=== PATIENT | female | born 1965 | race Caucasian/White ===

== ENCOUNTER 2019-07-02 18:44 | Emergency (ER) | payer BC ==
[2019-07-02] MEDS ORDERED: ACETAMINOPHEN 325 MG TABLET PO ONE (18:59)
--- NOTE | 2019-07-02 19:00 | ER Document Report ---
ED Medical Screen (RME) - General Chief Complaint: High Blood Pressure Stated Complaint: HEADACHE Time Seen by Provider: 07/02/19 18:55 Mode of Arrival: Ambulatory Information source: Patient Notes: 53-year-old female presented to ED for complaint of headache nausea blurry vision. She states that she is never been diagnosed with high blood pressure but her she had a cousin took her blood pressure on Monday and was 168/105. She states she has had other symptoms also she is been through menopause that she has night sweats sometimes she does have high cholesterol but is not been treated for that recently. She states she came became very concerned and she does not have a primary doctor to follow-up with. She is alert oriented respirations regular nonlabored speaking in full sentences and at this time. I have greeted and performed a rapid initial assessment of this patient. A comprehensive ED assessment and evaluation of the patient, analysis of test results and completion of medical decision making process will be conducted by an additional ED providers. TRAVEL OUTSIDE OF THE [place] IN LAST 30 DAYS: No - Related Data Allergies/Adverse Reactions: No Known Allergies Allergy (Verified 07/10/14 07:14) Past Medical History - Past Medical History Cardiac Medical History: Reports: Hx Coronary Artery Disease - High Cholesterol, Hx Hypercholesterolemia Denies: Hx Heart Attack, Hx Hypertension Pulmonary Medical History: Reports: Hx Asthma - Chronic Cough, Hx Bronchitis, Hx Pneumonia Denies: Hx COPD Neurological Medical History: Denies: Hx Cerebrovascular Accident, Hx Seizures Musculoskeltal Medical History: Denies Hx Arthritis - Hands Past Surgical History: Reports: Hx Tubal Ligation. Denies: Hx Hysterectomy - Immunizations Hx Diphtheria, Pertussis, Tetanus Vaccination: Yes Physical Exam - Vital signs Vitals: Temp Pulse Resp BP Pulse Ox 98.2 F 83 14 168/96 H 98 07/02/19 18:51 07/02/19 18:51 07/02/19 18:51 07/02/19 18:51 07/02/19 18:51 Course - Vital Signs Vital signs: Temp Pulse Resp BP Pulse Ox 98.2 F 83 14 168/96 H 98 07/02/19 18:55 07/02/19 18:51 07/02/19 18:51 07/02/19 18:51 07/02/19 18:51
[2019-07-02 19:49] LABS: ABSOLUTE EOSINOPHILS # (AUTO) 0.1 10^3/uL (0.0-0.6); ABSOLUTE LYMPHOCYTES (AUTO) 1.9 10^3/uL (0.5-4.7); ABSOLUTE MONOCYTES (AUTO) 0.4 10^3/uL (0.1-1.4); ABSOLUTE NEUT (AUTO) 3.4 10^3/uL (1.7-8.2); BASOPHILS % (AUTO) 0.8 % (0-2); EOSINOPHILS % (AUTO) 1.8 % (0-6); HEMATOCRIT 36.9 % (36.0-47.0); HEMOGLOBIN 13.4 g/dL (12.0-15.5); LYMPHOCYTES % (AUTO) 32.5 % (13-45); MEAN CORPUSCULAR HEMOGLOBIN 34.8 pg (27.0-33.4); MEAN CORPUSCULAR HGB CONC 36.3 g/dL (32.0-36.0); MEAN CORPUSCULAR VOLUME 96 fl (80-97); MONOCYTES % (AUTO) 6.9 % (3-13); PLATELET COUNT 241 10^3/uL (150-450); RED BLOOD COUNT 3.85 10^6/uL (3.72-5.28); RED CELL DISTRIBUTION WIDTH 12.9 % (11.5-14.0); TOTAL CELLS COUNTED % (AUTO) 100 %; WHITE BLOOD COUNT 5.9 10^3/uL (4.0-10.5)
[2019-07-02 20:07] LABS: ALBUMIN 4.7 g/dL (3.5-5.0); ALKALINE PHOSPHATASE 90 U/L (38-126); ANION GAP 7 (5-19); ASPARTATE AMINO TRANSFERASE 24 U/L (14-36); BILIRUBIN,TOTAL 0.4 mg/dL (0.2-1.3); BLOOD UREA NITROGEN 19 mg/dL (7-20); CALCIUM 9.7 mg/dL (8.4-10.2); CARBON DIOXIDE 26 mmol/L (22-30); CHLORIDE 105 mmol/L (98-107); GLUCOSE 95 mg/dL (75-110); POTASSIUM 4.2 mmol/L (3.6-5.0); TOTAL PROTEIN 7.8 g/dL (6.3-8.2)
--- NOTE | 2019-07-02 20:39 | ER Document Report ---
ED General - General Chief Complaint: High Blood Pressure Stated Complaint: HEADACHE Time Seen by Provider: 07/02/19 18:55 Mode of Arrival: Ambulatory TRAVEL OUTSIDE OF THE [place] IN LAST 30 DAYS: No - HPI Notes: Patient is a 53-year-old female who presents to the emergency department for evaluation of elevated blood pressures. The patient does not have a primary care doctor. She states her cousin obtained a new blood pressure machine, they checked it for the first time 2 weeks ago, and her systolic pressure was in the 150s. She states she has had multiple readings that have been elevated. She states she has had a headache since March, but it is not worse recently. She states the pain is in the right posterior aspect of her head. It waxes and wanes in intensity but never seems to really go away. She denies any difficulty seeing, speaking, swallowing. She is moving her arms and legs without difficulty. She denies any chest pain or shortness of breath. She states she is urinating normally. - Related Data Allergies/Adverse Reactions: No Known Allergies Allergy (Verified 07/10/14 07:14) Past Medical History - General Information source: Patient - Social History Smoking Status: Current Every Day Smoker Frequency of alcohol use: Heavy - Patient drinks 5 mixed drinks 3-4 times weekly Family History: Hypertension Patient has homicidal ideation: No - Past Medical History Cardiac Medical History: Reports: Hx Hypercholesterolemia Denies: Hx Heart Attack, Hx Hypertension Pulmonary Medical History: Reports: Hx Asthma - Chronic Cough, Hx Bronchitis, Hx Pneumonia Denies: Hx COPD Neurological Medical History: Denies: Hx Cerebrovascular Accident, Hx Seizures Endocrine Medical History: Reports: Hx Hypothyroidism Musculoskeletal Medical History: Denies Hx Arthritis - Hands Past Surgical History: Reports: Hx Tubal Ligation. Denies: Hx Hysterectomy - Immunizations Hx Diphtheria, Pertussis, Tetanus Vaccination: Yes Review of Systems - Review of Systems Constitutional: See HPI -: Yes All other systems reviewed and negative Physical Exam - Vital signs Vitals: Temp Pulse Resp BP Pulse Ox 98.2 F 83 14 168/96 H 98 07/02/19 18:51 07/02/19 18:51 07/02/19 18:51 07/02/19 18:51 07/02/19 18:51 - Notes Notes: Vital signs reviewed, please refer to chart. Head is normocephalic, atraumatic. Pupils equal round, reactive to light. Neck is supple without meningismus. Heart is regular rate and rhythm. Lungs are clear to auscultation bilaterally. Abdomen is soft, nontender, normoactive bowel sounds throughout. Extremities without cyanosis, clubbing. Posterior calves are nontender. Peripheral pulses are equal. Skin is warm and dry. Patient is awake, alert, oriented x3. Cranial nerves II - XII are grossly intact without focal neurological deficits. Strength is plus 5 out of 5 bilateral upper and lower extremities. Sensation is intact. Reflexes symmetrical. Intact [id number], rapid alternating movements, [id number]. Course - Re-evaluation Re-evalutation: 07/02/19 20:38 Patient presents to the emergency department for evaluation. She was seen through triage. Her physical exam reveals no signs of endorgan damage. Her blood pressure is elevated, but not markedly so. She does not complain of any issues to have me concerned about endorgan damage. CBC and CMP are unremarkable. Awaiting urinalysis at this time. I talked at length with the patient in regards to lifestyle modifications, including quitting smoking, quitting drinking. We talked about the importance of establishing with a primary care provider, blood pressure control. She voiced understanding. She was feeling slightly improved after the Tylenol. She is stable, we will continue to monitor, waiting for urinalysis. 07/02/19 21:39 Urinalysis fails to reveal signs of protein. We will have her follow-up with primary care, she is to return to the ER with worsening or new concerning symptoms of any sort. - Vital Signs Vital signs: Temp Pulse Resp BP Pulse Ox 98.2 F 83 14 168/96 H 98 07/02/19 18:55 07/02/19 18:51 07/02/19 18:51 07/02/19 18:51 07/02/19 18:51 - Laboratory Result Diagrams: 07/02/19 19:35 07/02/19 19:35 Laboratory results interpreted by me: 07/02/19 07/02/19 19:35 20:10 MCH 34.8 H MCHC 36.3 H Urine Blood MODERATE H Discharge - Discharge Clinical Impression: Hypertension Qualifiers: Hypertension type: unspecified Qualified Code(s): I10 - Essential (primary) hypertension Condition: Stable Disposition: HOME, SELF-CARE Instructions: High Blood Pressure ([facility]) Additional Instructions: Your blood pressure was moderately elevated here today, but your exam and blood work failed to show any signs of endorgan damage. Please continue to keep a record of your blood pressures at home, and the pharmacies. Bring this to a follow-up with primary care in the next week. You may require treatment for elevated blood pressure. Please consider lifestyle changes as discussed. If you develop chest pain, shortness of breath, difficulty seeing, speaking, swallowing, weakness on one side, or any other new or concerning symptoms, return immediately to the emergency department for reevaluation. Forms: Smoking Cessation Education
[2019-07-02 20:55] LABS: APPEARANCE,URINE CLEAR; BILIRUBIN,URINE NEGATIVE (NEGATIVE); COLOR,URINE COLORLESS; GLUCOSE, URINE NEGATIVE (NEGATIVE); KETONES,URINE NEGATIVE (NEGATIVE); PROTEIN,URINE NEGATIVE (NEGATIVE); URINE SPECIFIC GRAVITY 1.003; UROBILINOGEN,URINE NEGATIVE mg/dL (<2.0)
[2019-07-02 22:19] VITALS: BP 177/99
== END 2019-07-02 22:20 | disposition home or self-care (01) ==
LOC: ER 18:44
DX: I10 Essential (primary) hypertension (principal); R51 Headache; F17.200 Nicotine dependence, unspecified, uncomplicated; J45.909 Unspecified asthma, uncomplicated
CPT/HCPCS: 36415; 80053; 81001; 85025; 99283

== ENCOUNTER 2019-09-21 10:30 | Emergency (ER) | payer BC ==
--- NOTE | 2019-09-21 11:03 | ER Document Report ---
ED Medical Screen (RME) - General Chief Complaint: ETOH Abuse Stated Complaint: WRIST LACERATION/EYE PAIN Time Seen by Provider: 09/21/19 10:56 Mode of Arrival: Medic Information source: Patient Notes: 54-year-old female presents to ED for complaint of left elbow pain. She has superficial self-inflicted lacerations to her left wrist. She states she got off work about 2 AM and is been drinking until about 2 hours ago. She is very confused. She states she smokes 3/4 pack/day drinks 3-4 times a week has been menopausal for many years she is hypothyroid high cholesterol high blood pressu re. I have greeted and performed a rapid initial assessment of this patient. A comprehensive ED assessment and evaluation of the patient, analysis of test results and completion of medical decision making process will be conducted by an additional ED providers. TRAVEL OUTSIDE OF THE [place] IN LAST 30 DAYS: No - Related Data Allergies/Adverse Reactions: No Known Allergies Allergy (Verified 07/10/14 07:14) Past Medical History - Past Medical History Cardiac Medical History: Reports: Hx Coronary Artery Disease - High Cholesterol, Hx Hypercholesterolemia Denies: Hx Heart Attack, Hx Hypertension Pulmonary Medical History: Reports: Hx Asthma - Chronic Cough, Hx Bronchitis, Hx Pneumonia Denies: Hx COPD Neurological Medical History: Denies: Hx Cerebrovascular Accident, Hx Seizures Endocrine Medical History: Reports: Hx Hypothyroidism Musculoskeltal Medical History: Denies Hx Arthritis - Hands Past Surgical History: Reports: Hx Tubal Ligation. Denies: Hx Hysterectomy - Immunizations Hx Diphtheria, Pertussis, Tetanus Vaccination: Yes Physical Exam - Vital signs Vitals: Temp Pulse Resp BP Pulse Ox 97.6 F 86 16 155/95 H 98 09/21/19 10:44 09/21/19 10:44 09/21/19 10:44 09/21/19 10:44 09/21/19 10:44 Course - Vital Signs Vital signs: Temp Pulse Resp BP Pulse Ox 97.6 F 86 16 155/95 H 98 09/21/19 10:44 09/21/19 10:44 09/21/19 10:44 09/21/19 10:44 09/21/19 10:44
[2019-09-21] MEDS ORDERED: NORMAL SALINE 1000 ML 1,000 ML IV ONE (11:04)
[2019-09-21 12:06] LABS: ABSOLUTE BASOPHILS # (AUTO) 0.1 10^3/uL (0.0-0.2); ABSOLUTE EOSINOPHILS # (AUTO) 0.1 10^3/uL (0.0-0.6); ABSOLUTE MONOCYTES (AUTO) 0.3 10^3/uL (0.1-1.4); ABSOLUTE NEUT (AUTO) 4.8 10^3/uL (1.7-8.2); BASOPHILS % (AUTO) 0.8 % (0-2); EOSINOPHILS % (AUTO) 1.3 % (0-6); HEMATOCRIT 38.7 % (36.0-47.0); HEMOGLOBIN 13.8 g/dL (12.0-15.5); LYMPHOCYTES % (AUTO) 27.9 % (13-45); MEAN CORPUSCULAR HGB CONC 35.7 g/dL (32.0-36.0); MEAN CORPUSCULAR VOLUME 95 fl (80-97); MONOCYTES % (AUTO) 4.7 % (3-13); PLATELET COUNT 326 10^3/uL (150-450); RED BLOOD COUNT 4.07 10^6/uL (3.72-5.28); RED CELL DISTRIBUTION WIDTH 12.7 % (11.5-14.0); SEGMENTED NEUTROPHILS % (AUTO) 65.3 % (42-78); TOTAL CELLS COUNTED % (AUTO) 100 %; WHITE BLOOD COUNT 7.3 10^3/uL (4.0-10.5)
[2019-09-21 12:13] LABS: APPEARANCE,URINE CLEAR; BILIRUBIN,URINE NEGATIVE (NEGATIVE); COLOR,URINE STRAW; GLUCOSE, URINE NEGATIVE (NEGATIVE); KETONES,URINE NEGATIVE (NEGATIVE); LEUKOCYTE ESTERASE,URINE NEGATIVE (NEGATIVE); NITRITE,URINE NEGATIVE (NEGATIVE); PROTEIN,URINE NEGATIVE (NEGATIVE); URINE SPECIFIC GRAVITY 1.002; UROBILINOGEN,URINE NEGATIVE mg/dL (<2.0)
[2019-09-21 12:27] LABS: ALBUMIN 4.9 g/dL (3.5-5.0); ALCOHOL 263 mg/dL (NONE DETECTED); ALKALINE PHOSPHATASE 94 U/L (38-126); ANION GAP 10 (5-19); ASPARTATE AMINO TRANSFERASE 28 U/L (14-36); BILIRUBIN,TOTAL 0.3 mg/dL (0.2-1.3); BLOOD UREA NITROGEN 11 mg/dL (7-20); CALCIUM 9.8 mg/dL (8.4-10.2); CARBON DIOXIDE 23 mmol/L (22-30); CHLORIDE 103 mmol/L (98-107); GLUCOSE 114 mg/dL (75-110); POTASSIUM 3.9 mmol/L (3.6-5.0)
[2019-09-21 12:30] LABS: URINE AMPHETAMINES SCREEN NEGATIVE; URINE BARBITURATES SCREEN NEGATIVE; URINE BENZODIAZEPINES SCREEN NEGATIVE; URINE COCAINE SCREEN NEGATIVE; URINE MARIJUANA (THC) SCREEN NEGATIVE; URINE METHADONE SCREEN NEGATIVE; URINE PHENCYCLIDINE SCREEN NEGATIVE
[2019-09-21] MEDS ORDERED: TETRACAINE HCL 0.5% OPH SOLN 4 ML OS ONE (13:58)
--- NOTE | 2019-09-21 14:03 | RADIOLOGY REPORT (SQ) ---
EXAM DESCRIPTION: CHEST SINGLE VIEW IMAGES COMPLETED DATE/TIME: 09/21/2019 1:52 pm REASON FOR STUDY: alcohol intoxication COMPARISON: 2014 NUMBER OF VIEWS: One view. TECHNIQUE: Single frontal radiographic view of the chest acquired. LIMITATIONS: None. FINDINGS: LUNGS AND PLEURA: No opacities, masses or pneumothorax. No pleural effusion. MEDIASTINUM AND HILAR STRUCTURES: No masses. Contour normal. HEART AND VASCULAR STRUCTURES: Heart normal in size. Normal vasculature. BONES: No acute findings. HARDWARE: None in the chest. OTHER: No other significant finding. IMPRESSION: NO SIGNIFICANT RADIOGRAPHIC FINDING IN THE CHEST. TECHNICAL DOCUMENTATION: JOB ID: [id number] 2010 [employer]- All Rights Reserved Reading location - IP/workstation name: [email or web address]
[2019-09-21] MEDS ORDERED: NORMAL SALINE 1000 ML 1,000 ML with POTASSIUM CHLORIDE 20 MEQ, MAGNESIUM SULFATE 8 MEQ,... IV ONE ×5 (14:30)
--- NOTE | 2019-09-21 15:22 | PSYCHOLOGICAL NOTE ---
Psych Note - Psych Note Date seen by psych provider: 09/21/19 Time seen by psych provider: 14:40 Psych Note: Reason for Consult: self-harm Patient arrived to [facility] ED via EMS. Patient is currently under the influence of alcohol with an EtOH of 263. Patient states she has no memory of harming herself. Patient admits to increased stress with work and being scared of COVID. She reports that she has been isolating herself from her family members because she did not want to get any family sick or herself sick. She reports that the family has been struggling with the passing of her mother; "my kids cannot lose me to they are not ready for me to pass away... 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 Because she has asthma she went to her provider in an attempt to receive a letter exempt in her from having to work and being exposed however her PCM refused. She reports that she had to use her personal time and now is once again back working. Patient again looks at her wrist with embarrassed facial expression; "wow, that is a lot of cuts... and I do not even remember doing it and I obviously was not using a very sharp knife... I cannot believe this time so embarrassed." Patient admits to drinking proximately 2-3 times a week and states last night's alcohol consumption was a typical night of drinking for her. Patient is alert and orientated to person, place, time and circumstance. Mood is embarrassed with tearful affect. Patient denies suicidal and homicidal ideation. She reports she does not remember engaging in self-harm cutting. Delusions are absent behaviors congruent with an intact reality based presentation I organized and linear thought process. Eye contact is poor as patient does have a scratched cornea and she is having difficulty. Intellectual abilities appear to be within the average range. Attention and concentration are currently good. Insight, judgment, impulse control are fair. Clinical presentation Alcohol intoxication Increased anxiety and depression due to work and COVID Impression\\plan: Patient is cleared from acute psychiatric services. Patient arrived to [facility] ED with an EtOH of 263 after engaging in self-harm behaviors i.e. cutting. Patient reports she has no memory of engaging in these behaviors. Patient engages appropriately with clinician disclosing being embarrassed with increased depression anxiety due to work and COVID. Patient has been isolating herself until recently returning back to work. Patient identifies family as support network. Patient will be provided local detox referral list if she is interested in detox assistance in sobriety. Dr. Foreman was consulted on the care and management of this patient; attending physicians in agreement with recommendations and disposition.
[2019-09-21] MEDS ORDERED: TOBRAMYCIN SULFATE/DEXAMETH OPH OINTMENT 3.5 GM OS ONE (15:24)
--- NOTE | 2019-09-21 15:55 | ER Document Report ---
Entered by RITIKA MCKEON SCRIBE 09/21/19 1311 Acting as scribe for:JHONATAN WILEY MD ED General <REEDMANUEL - Last Filed: 09/21/19 15:22> - General Mode of Arrival: Medic Information source: Patient TRAVEL OUTSIDE OF THE [place] IN LAST 30 DAYS: No - Related Data Home Medications: Synthroid <JHONATAN WILEY - Last Filed: 09/21/19 15:55> - General Chief Complaint: ETOH Abuse Stated Complaint: WRIST LACERATION/EYE PAIN Time Seen by Provider: 09/21/19 10:56 Primary Care Provider: [facility] [Provider Group] - Follow up as needed Notes: This 54 year old female patient presents to the emergency department today with EtOH abuse. Patient states she had a overnight shift at her job last night and when she got home, she started to drink to relax. Patient states she started drinking after 2 am and likes to consume brown/dark liquor, specifically [place]. Patient states her left eye hurts when opening, and states she may have been rubbing her eyes. Patient states she does not know who called for EMS, but she lives with her daughter. Patient has superficial cuts on her left wrist and does not remember cutting herself. Patient denies suicidal/homicidal ideation, hearing voices, or visual hallucinations. (JHONATAN WILEY) - Related Data Allergies/Adverse Reactions: No Known Allergies Allergy (Verified 07/10/14 07:14) Past Medical History - General Information source: Patient - Social History Smoking Status: Current Every Day Smoker Cigarette use (# per day): Yes Chew tobacco use (# tins/day): No Frequency of alcohol use: Heavy Lives with: Family Family History: Reviewed & Not Pertinent, Hypertension - Past Medical History Cardiac Medical History: Reports: Hx Coronary Artery Disease - High Cholesterol, Hx Hypercholesterolemia, Hx Hypertension Pulmonary Medical History: Reports: Hx Asthma - Chronic Cough, Hx Bronchitis, Hx Pneumonia Endocrine Medical History: Reports: Hx Hypothyroidism Past Surgical History: Reports: Hx Tubal Ligation - Immunizations Hx Diphtheria, Pertussis, Tetanus Vaccination: Yes <JHONATAN WILEY - Last Filed: 09/21/19 15:55> Review of Systems - Review of Systems Constitutional: No symptoms reported EENT: See HPI, Eye pain - Left Cardiovascular: No symptoms reported Respiratory: No symptoms reported Gastrointestinal: No symptoms reported Genitourinary: No symptoms reported Female Genitourinary: No symptoms reported Musculoskeletal: No symptoms reported Skin: No symptoms reported Hematologic/Lymphatic: No symptoms reported Neurological/Psychological: See HPI. denies: Hallucinations, Homicidal ideation, Suicidal ideation -: Yes All other systems reviewed and negative <JHONATAN WILEY - Last Filed: 09/21/19 15:55> Physical Exam - General General appearance: Appears well, Alert - HEENT Head: Normocephalic, Atraumatic Extraocular movements intact: Yes Eyelashes: Normal Pupils: PERRL - Respiratory Respiratory status: No respiratory distress Chest status: Nontender Breath sounds: Normal Chest palpation: Normal - Cardiovascular Rhythm: Regular Heart sounds: Normal auscultation Murmur: No - Abdominal Inspection: Normal Distension: No distension Bowel sounds: Normal Tenderness: Nontender - Extremities General lower extremity: Normal inspection, Nontender. No: Edema - Neurological Neuro grossly intact: Yes Cognition: Normal Orientation: AAOx4 Speech: Normal - Psychological Associated symptoms: Normal affect, Normal mood - Skin Skin Temperature: Warm Skin Moisture: Dry Skin Color: Normal <JHONATAN WILEY - Last Filed: 09/21/19 15:55> - Vital signs Vitals: Temp Pulse Resp BP Pulse Ox 97.6 F 86 16 155/95 H 98 09/21/19 10:44 09/21/19 10:44 09/21/19 10:44 09/21/19 10:44 09/21/19 10:44 - HEENT Notes: Linear x1.5 cm subconjunctival hemorrhage between 5 and 7 o'clock of the left eye. No embedded or superficial bodies present. Small corneal abrasion on the center of the left eye. (JHONATAN WILEY) - Extremities Notes: Superficial lacerations on the left anterior wrist. Normal ROM. No active bleeding. (JHONATAN WILEY) Course - Laboratory Result Diagrams: 09/21/19 11:20 09/21/19 11:20 <MANUEL REED - Last Filed: 09/21/19 15:22> - Laboratory Result Diagrams: 09/21/19 11:20 09/21/19 11:20 <JHONATAN WILEY - Last Filed: 09/21/19 15:55> - Vital Signs Vital signs: Temp Pulse Resp BP Pulse Ox 97.6 F 86 16 155/95 H 98 09/21/19 10:44 09/21/19 10:44 09/21/19 10:44 09/21/19 10:44 09/21/19 10:44 - Laboratory Laboratory results interpreted by me: 09/21/19 09/21/19 09/21/19 11:10 11:20 11:20 MCH 34.0 H Sodium 136.2 L Glucose 114 H Urine Blood MODERATE H Acetaminophen 09/21/19 11:20 MCH Sodium Glucose Urine Blood Acetaminophen < 10 L Discharge <MANUEL REED - Last Filed: 09/21/19 15:22> <JHONATAN WILEY - Last Filed: 09/21/19 15:55> - Discharge Clinical Impression: Self-harming behavior, Corneal abrasion, left Alcohol intoxication Qualifiers: Complication of substance-induced condition: uncomplicated Qualified Code(s): F10.920 - Alcohol use, unspecified with intoxication, uncomplicated Condition: Stable Disposition: HOME, SELF-CARE Instructions: Corneal Abrasion ([facility]) Additional Instructions: You have been evaluated by both medical and behavioral health teams for substance abuse and self-harm and have been deemed appropriate for discharge. While in the emergency department you received the following services: Medical screening and assessment, nursing services, dietary services, pharmacological se rvices, one-on-one counseling and/or psychotherapy, environmental services, and continuous observation by a patient safety assistant. You have been provided local resource list of area providers including detox facilities and mobile crisis contact information. You are highly encouraged to follow through with substance abuse assessment to determine appropriate course of treatment. ACUTE ALCOHOL INTOXICATION and ALCOHOL ABUSE: Your evaluation revealed very high levels of alcohol. You can from drinking a large amount of alcohol rapidly! Further, there's the risk of falls, traffic accidents, and fights. A high portion (about 50 percent) of the serious injuries seen in hospital emergency rooms are caused by alcohol. Alcohol overdosage is usually due to an underlying emotional or psychiatric problem. You may benefit from counselling. If "binge" drinking is an ongoing problem for you, or if you drink ANY AMOUNT of alcohol EVERY day, you most likely have a tendency to alcoholism. You should avoid alcohol totally. We can refer you for treatment. Persons with alcohol problems are often also prone to other addictions -- you should discuss any use of medications or drugs with the doctor. You should be watched at home for the next several hours by someone who has not been drinking. Get extra fluids for the next 24 hours. Call the doctor if there is repeated vomiting, increasing headache, decreasing level of alertness, or any other worsening. CHRONIC ALCOHOLISM and ALCOHOL ABUSE: Your evaluation reveals evidence of chronic alcoholism, an addiction to alcohol. The tendency to alcoholism may be inherited. Chronic use of alcohol weakens muscles, causes fatty deposits in the liver, damages the stomach, makes you more prone to infections, and can cause defects in unborn children. In the long run, brain atrophy and cirrhosis of the liver result. You are also at greater risk for certain types of cancer, such as cancer of the mouth, throat, stomach, and liver. Counselling services are available to help you. In-hospital treatment programs often help. Support groups such as Alcoholics Anonymous can be very useful in beating this addiction. Your physician can make a referral for you. As alcoholics often are prone to other addictions, you should discuss your use of any other medications with the doctor. ALCOHOL WITHDRAWAL: Your symptoms are caused by alcohol withdrawal. After a period of frequent drinking, the brain and body are changed by the alcohol. When you quit or reduce your drinking, the nervous system becomes unstable. Withdrawal symptoms can start a few hours after your last drink, but sometimes don't begin until a couple of days later. Symptoms can include shakiness, sweating, insomnia, nausea, vomiting, fearfulness, hallucinations, and seizures. In addition to the acute effects of alcohol withdrawal, we often have to deal with the medical effects of alcoholism. These problems often include dehydration, stomach irritation, intestinal bleeding, low blood sugar, liver disease, and pancreas inflammation. Treatment for alcohol withdrawal includes mild sedatives, vitamins, and fluids. You need to be with someone who can help if symptoms become severe. Many patients can withdraw at home. Admission to the hospital or a detox facility may be necessary if withdrawal symptoms are severe and uncontrollable. Abstaining from alcohol is the only effective long-term treatment. If you start drinking again, you will not be able to control yourself after the first drink. Treatment programs are available. In addition, many alcoholics benefit from Alcoholics Anonymous or other support groups available through your counselor or denominational municipal firefighter. [employer] and [employer] are support groups for friends and family members of an alcoholic. Go to the emergency room if you develop persistent vomiting, severe abdominal pain, fever, shortness of breath, hallucinations, uncontrollable tremors, or seizures. DEPRESSION: Your evaluation reveals that you have mental depression. While symptoms may be vague, they often include disturbance of sleep, fatigue, loss of appetite, and general loss of interest in life. While depression may be a side effect of drugs, or a reaction to a major change in your life, many cases have no known cause. If depression is acute, and related to a major loss in your life, you can expect it to clear completely with time. If you have been depressed a long time, are prone to repeated bouts of depression or low mood, or have been thinking of suicide, get help. Depression can be treated with anti-depressant medication and counselling. Long-term depression will often take a few weeks to clear, even with appropriate medication. Follow-up care is important. SUICIDAL IDEATION: Suicidal ideation is a common medical term for thoughts about suicide, which may be as detailed as a formulated plan, without the suicidal act itself. Although most people who undergo suicidal ideation do not commit suicide, some go on to make suicide attempts. The range of suicidal ideation varies greatly from fleeting to detailed planning, role playing, and unsuccessful attempts. While thoughts about suicide are common, most people do not carry out serious actions to commit suicide. Based upon your evaluation and discussion with you, we do not believe you are currently at risk to act upon your thoughts of suicide. You have agreed to return to the Emergency Department, at any time, if you feel inclined to act upon your suicidal thoughts. FOLLOW-UP CARE: If you have been referred to a physician for follow-up care, call the physicians office for an appointment as you were instructed or within the next two days. If you experience worsening or a significant change in your symptoms, notify the physician immediately or return to the Emergency Department at any time for re-evaluation. Prescriptions: Ketorolac Tromethamine 0.45% [Acuvail 0.45% Oph Soln 0.4 ml/Dropperette] 1 drop OS BID PRN 7 Days #1 bottle PRN Reason: Tobramycin Sulfate/Dexameth [Tobradex Oph Ointment 3.5 Gm Tube] 1 applic OS TID 7 Days #1 tube Forms: Return to Work Referrals: [facility] [Provider Group] - Follow up as needed ANNETTE CANELA MD [ACTIVE STAFF] - 09/23/19 (Follow up with opthalmologist as son as posssible on Monday) I personally performed the services described in the documentation, reviewed and edited the documentation which was dictated to the scribe in my presence, and it accurately records my words and actions.
[2019-09-21] MEDS ORDERED: NORMAL SALINE 1000 ML 1,000 ML with POTASSIUM CHLORIDE 20 MEQ, MAGNESIUM SULFATE 8 MEQ,... IV SCH ×5 (18:00)
[2019-09-21 23:28] VITALS: BP 153/89
== END 2019-09-21 23:26 | disposition home or self-care (01) ==
LOC: ER 10:30
DX: S61.512A Laceration without foreign body of left wrist, initial encounter (principal); S05.02XA Injury of conjunctiva and corneal abrasion without foreign body, left eye, initial encounter; X78.9XXA Intentional self-harm by unspecified sharp object, initial encounter; F10.120 Alcohol abuse with intoxication, uncomplicated; Y90.8 Blood alcohol level of 240 mg/100 ml or more; F17.210 Nicotine dependence, cigarettes, uncomplicated; I25.10 Atherosclerotic heart disease of native coronary artery without angina pectoris; I10 Essential (primary) hypertension; J45.909 Unspecified asthma, uncomplicated; F41.9 Anxiety disorder, unspecified; F32.9 Major depressive disorder, single episode, unspecified; Z63.4 Disappearance and death of family member; Z56.89 Other problems related to employment
CPT/HCPCS: 99284; 96361; 96365; 96366; 36415; 80307 ×3; 83690; 85025; 80053; 81001; 71045; J3490 ×3; J3475; J3480; J3411; J7030